=== PATIENT | female | born 1950 | race Two or more races ===

== ENCOUNTER 2024-10-01 07:22 | Outpatient (CLI) | payer OTHER | END 2024-10-01 07:23 | disposition home or self-care (01) | LOC: NUCLEAR 07:22 | PROVIDERS: ATTEND Internal Medicine Pulmonary Disease | DX: R91.1 Solitary pulmonary nodule (principal) | CPT/HCPCS: 78816; A9552 ==

== ENCOUNTER 2024-12-02 08:00 | Inpatient (IN) | payer OTHER ==
[~2024-12-02] VITALS: Ht 152.4 cm; Wt 59.0 kg
[2024-12-02] MEDS ORDERED: COZAAR25 MG (08:20)
[2024-12-02] MEDS ORDERED: NORVASC10 MG (08:20)
[2024-12-02 08:38] VITALS: BP 149/76
[2024-12-02 09:04] LABS: PH,URINE 5.5 (5.0-8.0); URINE APPEARANCE Clear; URINE BILIRRUBIN Negative (NEGATIVE); URINE BLOOD NHT; URINE COLOR Yellow; URINE GLUCOSE Negative (NEGATIVE); URINE KETONE Negative (NEGATIVE); URINE LEUKOCYTE Trace; URINE NITRATE Negative; URINE PROTEIN Negative (NEGATIVE); URINE UROBILINOGEN 0.2 E.U./dl
[2024-12-02 09:08] LABS: URINE BACTERIA 6.1 uL (0.0-1933); URINE EPITHELIAL CELLS 2.9 uL (0.0-38.8); URINE RBC 9.8 uL (0.0-20.8); URINE WBC 1.8 uL (0.0-23.2)
[2024-12-02 09:10] LABS: HEMATOCRIT 36.2 % (36.0-45.00); HEMOGLOBIN 12.1 g/dL (12.0-15.00); MEAN CELL VOLUME 83.1 fL (80.00-100.00); MEAN CORPUSCULAR HEMOGLOBIN 27.8 pg (27.00-32.0); MEAN CORPUSCULAR HGB CONC 33.5 g/dl (32.0-36.0); PLATELET COUNT 302 K/uL (150-450); RED BLOOD COUNT 4.35 M/uL (4.00-6.00); RED CELL DISTRIBUTION WIDTH 14.9 % (11.5-14.5)
[2024-12-02 09:48] LABS: INR 1.07; PARTIAL THROMBOPLASTIN TIME 30.9 SECONDS (22.0-34.0); PROTHROMBIN TIME 11.6 SECONDS (9.0-11.5)
[2024-12-02 09:53] LABS: RH POSITIVE
[2024-12-02 09:54] LABS: ALBUMIN 3.7 gm/dL (3.4-5.0); BILIRUBIN TOTAL 0.55 mg/dL (0.3-1.2); CALCIUM 10.1 mg/dL (8.5-10.1); CREATININE SERUM 0.6 mg/dL (0.55-1.02); GFR 97.99; GLOBULINA 3.7 G/DL (2.4-3.5); POTASSIUM 3.69 mEq/L (3.5-5.1); TOTAL PROTEIN 7.4 gm/dL (6.4-8.2)
[2024-12-09] MEDS ORDERED: CEFAZOLIN SODIUM 1,000 MG VIAL ONE ×3 (08:35→17:01)
[2024-12-09] MEDS ORDERED: BUPIVACAINE HCL/MPF 0.5% 30ML VIAL ONE (09:08)
[2024-12-09] MEDS ORDERED: VANCOMYCIN HCL 1,000 MG VIAL ONE (09:08)
[2024-12-09] MEDS ORDERED: LIDOCAINE HCL 1%/EPINEPHRINE 20ML VIAL IJ ONE (09:09)
[2024-12-09] MEDS ORDERED: ISOPROPYL ALCOHOL 30 ML OUNCE TOP ONE (09:09)
[2024-12-09] MEDS ORDERED: TRANEXAMIC ACID 100MG/1ML (1000MG) AMPUL IV ONE (09:09)
[2024-12-09] MEDS ORDERED: KETOROLAC TROMETHAMINE 60 MG VIAL IM ONE (10:02)
[2024-12-09] MEDS ORDERED: METHYLPREDNISOLONE ACETATE 80 MG/ML VIAL ONE (10:02)
[2024-12-09] MEDS ORDERED: GENTAMICIN SULFATE 40 MG/ML VIAL IV SCH (11:38)
[2024-12-09] MEDS ORDERED: MORPHINE SULFATE 4 MG/ML CARTRIDGE IV PRN (11:45)
[2024-12-09] MEDS ORDERED: ONDANSETRON HCL 2 MG/ML VIAL IV PRN (11:45)
[2024-12-09] MEDS ORDERED: MORPHINE SULFATE 2 MG/ML CARTRIDGE IV ONE (11:45)
[2024-12-09] MEDS ORDERED: SODIUM CHLORIDE 0.45 % 1,000 ML IV SCH (11:45)
[2024-12-09] MEDS ORDERED: GENTAMICIN SULFATE 40 MG/ML VIAL ONE (12:13)
[2024-12-09 13:29] LABS: HEMATOCRIT 33.9 % (36.0-45.00); HEMOGLOBIN 11.1 g/dL (12.0-15.00); RED BLOOD COUNT 4.01 M/uL (4.00-6.00)
[2024-12-09] MEDS ORDERED: MORPHINE SULFATE 4 MG/ML VIAL IV ONE ×2 (15:45→19:45)
[2024-12-09] MEDS ORDERED: CEFAZOLIN SODIUM 1,000 MG VIAL IV SCH (18:00)
[2024-12-09 20:30] VITALS: BP 130/72; O2SAT 97
[2024-12-10] VITALS: BP 117/67; O2SAT 98
[2024-12-10 06:47] LABS: HEMATOCRIT 34.2 % (36.0-45.00); HEMOGLOBIN 11.2 g/dL (12.0-15.00); MEAN CELL VOLUME 84.1 fL (80.00-100.00); MEAN CORPUSCULAR HEMOGLOBIN 27.6 pg (27.00-32.0); MEAN CORPUSCULAR HGB CONC 32.8 g/dl (32.0-36.0); PLATELET COUNT 338 K/uL (150-450); RED BLOOD COUNT 4.07 M/uL (4.00-6.00); RED CELL DISTRIBUTION WIDTH 14.3 % (11.5-14.5)
[2024-12-10 08:00] VITALS: BP 137/76; O2SAT 99
[2024-12-10] MEDS ORDERED: ACETAMINOPHEN WITH CODEINE 1 UDTAB TABLET PO PRN (08:30)
[2024-12-10] MEDS ORDERED: AMLODIPINE BESYLATE 10 MG TABLET PO SCH (09:00)
[2024-12-10] MEDS ORDERED: CELECOXIB 200 MG CAPSULE PO SCH (09:00)
[2024-12-10] MEDS ORDERED: RIVAROXABAN 10 MG TAB PO SCH (09:00)
[2024-12-10] MEDS ORDERED: SENNA/DOCUSATE SODIUM 1 TAB TABLET PO SCH (09:00)
[2024-12-10] MEDS ORDERED: IRON FUM,PS/FOLIC/BCOMP,C NO.9 1 CAP CAPSULE PO SCH (09:00)
[2024-12-10] MEDS ORDERED: BACITRACIN 28.35 GM OINT.TUBE TOP SCH (09:00)
[2024-12-10 12:27] LABS: COVID-19 AG NEGATIVE (NEGATIVE)
[2024-12-10 18:11] VITALS: BP 130/72; O2SAT 98
[2024-12-10 22:32] VITALS: BP 128/72; O2SAT 97
[2024-12-11 01:39] VITALS: BP 121/66; O2SAT 100
[2024-12-11] MEDS ORDERED: INTEGRA PLUS C1 EACH PO (06:26)
[2024-12-11] MEDS ORDERED: Septra Ds Tablet PO (06:26)
[2024-12-11] MEDS ORDERED: XARELTO10 MG PO (06:27)
[2024-12-11] MEDS ORDERED: ACETAMINOPHEN-1 EAC2 PO (06:27)
[2024-12-11 06:52] LABS: HEMATOCRIT 31.2 % (36.0-45.00); HEMOGLOBIN 10.3 g/dL (12.0-15.00); MEAN CELL VOLUME 84.2 fL (80.00-100.00); MEAN CORPUSCULAR HEMOGLOBIN 27.8 pg (27.00-32.0); MEAN CORPUSCULAR HGB CONC 33.1 g/dl (32.0-36.0); PLATELET COUNT 324 K/uL (150-450); RED CELL DISTRIBUTION WIDTH 14.4 % (11.5-14.5)
[2024-12-11 08:10] VITALS: BP 137/73; O2SAT 99
[2024-12-11] MEDS ORDERED: SULFAMETHOXAZOLE/TRIMETHOPRIM DS 1 TAB PO SCH (09:00)
[2024-12-11 16:00] VITALS: BP 129/75; O2SAT 98
== END 2024-12-11 17:17 | disposition home or self-care (01) | DRG 470 ==
LOC: O/R 12-09 05:41 → SURH 12-09 05:41
PROVIDERS: ADMIT Orthopaedic Surgery Sports Medicine; ATTEND Orthopaedic Surgery Sports Medicine
PROC: 0SRD0J9 Replacement of Left Knee Joint with Synthetic Substitute, Cemented, Open Approach (ICD-10-PCS; principal; 2024-12-09 13:00)
DX: M17.12 Unilateral primary osteoarthritis, left knee (principal)